=== PATIENT | male | born 1965 | race Caucasian/White ===

== ENCOUNTER → 2024-01-19 10:22 | Outpatient (BNVA) | payer OTHER, SELFPAY | PROVIDERS: Visit Provider Physician Assistant Medical | DX: M79.672 Pain in left foot (principal); M79.89 Other specified soft tissue disorders | CPT/HCPCS: 73080; 73630; 84550; 85025; 85652; 86140; 99204 ==

== ENCOUNTER → 2024-01-23 09:52 | Outpatient (BNVA) | payer OTHER, SELFPAY | PROVIDERS: Visit Provider Physician Assistant Medical | DX: M19.072 Primary osteoarthritis, left ankle and foot (principal); M19.021 Primary osteoarthritis, right elbow | CPT/HCPCS: 99215 ==